=== PATIENT | male | born 1985 | race African-American/Black ===

== ENCOUNTER 2021-08-18 19:52 | Emergency (ER) | payer SELFPAY ==
[2021-08-18] MEDS ORDERED: METOCLOPRAMIDE 10 MG/2mL INJ ONE (20:35)
[2021-08-18] MEDS ORDERED: NA CHLORIDE 0.9% 1,000 ML ONE ×2 (20:35→22:59)
[2021-08-18] MEDS ORDERED: FAMOTIDINE 20 MG/2 ML VIAL IV ONE (20:35)
[2021-08-18 20:44] LABS: Absolute Lymphocytes (CBC) 2.3 K/uL (0.7-4.9); Basophils % 0.9 % (0-1.3); Hematocrit 47.5 % (39.6-49.0); Lymphocytes % 25.6 % (15.3-44.8); MPV 9.1 fL (7.6-11.3); RBC Red Blood Cell Count 4.84 M/uL (4.33-5.43)
[2021-08-18 21:01] LABS: ALT/SGPT 33 U/L (12-78); AST/SGOT 30 U/L (15-37); Albumin 4.1 g/dL (3.4-5.0); Alkaline Phosphatase 68 U/L (45-117); BUN Blood Urea Nitrogen 10 mg/dL (7-18); Bicarbonate 24 mmol/L (21-32); Bilirubin Direct 0.1 mg/dL (0-0.2); Bilirubin Total 0.3 mg/dL (0.2-1.0); Glucose Level 88 mg/dL (74-106); Lipase 243 U/L (73-393); Magnesium 2.3 mg/dL (1.8-2.4); Potassium 3.7 mmol/L (3.5-5.1); Protein, Total 8.1 g/dL (6.4-8.2); Sodium Level 142 mmol/L (136-145)
[2021-08-18] MEDS ORDERED: PROMETHAZINE INJ 25 MG/ML AMP ONE (21:43)
[2021-08-18] MEDS ORDERED: MORPHINE 4 MG/ML SYR ONE (21:43)
[2021-08-18 22:21] LABS: Urine Amorphous Sediment TRACE /HPF (NONE SEEN); Urine Bacteria <20 /HPF (NONE SEEN); Urine Mucus 2+ /HPF (NONE SEEN)
[2021-08-18 22:31] LABS: Barbiturates NEGATIVE (NEGATIVE); Benzodiazepines NEGATIVE (NEGATIVE); Cocaine NEGATIVE (NEGATIVE); METHAMPHETAM NEGATIVE (NEGATIVE); Methadone NEGATIVE (NEGATIVE); Opiates NEGATIVE (NEGATIVE); Phencyclidine NEGATIVE (NEGATIVE); THC Cannibis POSITIVE (NEGATIVE)
[2021-08-18] MEDS ORDERED: metroNIDAZOLE 500 MG TABLET ONE (23:18)
[2021-08-18 23:31] LABS: Urine Blood 1+ (Negative); Urine Glucose Negative (Negative); Urine Protein 1+ (Negative); Urine Specific Gravity >=1.030 (1.005-1.030)
[2021-08-18] MEDS ORDERED: CIPROFLOXACIN HCL 500 MG TAB ONE (23:58)
--- NOTE | 2021-08-19 00:07 | ER ---
Nurse's Notes [facility] Name: Michel Cowan Age: 36 yrs Sex: Male : 1985 Arrival Date: 08/18/2021 Time: 19:56 Bed 15 Private MD: Diagnosis: Enterocolitis Presentation: 08/18 20:25 Chief complaint: Patient states: he is vomiting, with diarrhea and abdominal pain for bb about a week these are recurring symptoms. Coronavirus screen: diarrhea, vomiting. Client presents with at least one sign or symptom that may indicate coronavirus-19. Standard/surgical mask placed on the client. Ebola Screen: No symptoms or risks identified at this time. Initial Sepsis Screen: Does the patient meet any 2 criteria? No. Patient's initial sepsis screen is negative. Does the patient have a suspected source of infection? No. Patient's initial sepsis screen is negative. Risk Assessment: Do you want to hurt yourself or someone else? Patient reports no desire to harm self or others. Onset of symptoms is unknown. 20:25 Method Of Arrival: Ambulatory bb 20:25 Acuity: NEHA 3 bb Historical: - Allergies: 20:28 No Known Allergies; bb - Home Meds: 20:28 None [Active]; bb - PMHx: 20:28 None; bb - PSHx: 20:28 None; bb - Immunization history:: Adult Immunizations up to date, Client reports having NOT received the Covid vaccine. - Social history:: Smoking status: Patient reports the use of cigarette tobacco products, Patient uses street drugs, marijuana. Assessment: 08/19 00:30 Reassessment: Patient is alert, oriented x 3, equal unlabored respirations, skin bb warm/dry/pink. pt verbalized understanding of and agrees to plan of care discharge instructions given pt ambulated with steady gait to exit accompanied by family Patient states feeling better. Patient states symptoms have improved. Vital Signs: 08/18 20:25 BP 115 / 90; Pulse 89; Resp 18 S; Temp 98.2(O); Pulse Ox 97% on R/A; Weight 70.31 kg bb (R); Height 5 ft. 8 in. (172.72 cm) (R); Pain 10/10; 22:22 BP 121 / 84; Pulse 84; Resp 18; Temp 98.1; Pulse Ox 98% on R/A; mr2 08/19 00:31 BP 97 / 59; Pulse 61; Resp 16 S; Pulse Ox 97% on R/A; bb 08/18 20:25 Body Mass Index 23.57 (70.31 kg, 172.72 cm) bb ED Course: 08/18 19:56 Patient arrived in ED. wm 20:09 Reinier Juan PA is PHCP. cp 20:09 Reinier Pérez MD is Attending Physician. cp 20:13 Bryant Randall, GANGA is Primary Nurse. mr2 20:28 Triage completed. bb 20:28 Arm band placed on Patient placed in an exam room, on a stretcher, on pulse oximetry. bb Family accompanied patient. 21:24 COVID-19 SARS RT PCR (Document "Date of Onset" if Symptomatic) Sent. mr2 22:14 CT Abd/Pelvis - IV Contrast Only In Process Unspecified. EDMS 08/19 00:02 En Wells MD is Referral Physician. cp 00:34 No provider procedures requiring assistance completed. IV discontinued, intact, bb bleeding controlled, No redness/swelling at site. Pressure dressing applied. Administered Medications: 08/18 20:32 Drug: NS 0.9% 1000 ml Route: IV; Rate: 1 bolus; Site: right antecubital; mr2 20:32 Drug: Pepcid (famotidine) 20 mg Route: IVP; Site: right antecubital; mr2 20:32 Drug: Reglan (metoCLOPramide) 20 mg Route: IVP; Site: right antecubital; mr2 22:03 Drug: Phenergan (promethazine) 12.5 mg Route: IVP; Site: right antecubital; mr2 22:03 Drug: morphine 2 mg Route: IVP; Site: right antecubital; mr2 22:03 Drug: NS 0.9% 1000 ml Route: IV; Rate: 1 bolus; Site: right subclavian; mr2 22:55 Drug: morphine 2 mg Route: IVP; Site: right antecubital; mr2 23:17 CANCELLED (Physician Discretion): metroNIDAZOLE 500 mg 100 ml IVPB once over 30 mins cp 23:31 Drug: Cipro (ciprofloxacin) 500 mg Route: PO; mr2 23:31 Drug: metroNIDAZOLE 500 mg Route: PO; mr2 Outcome: 08/19 00:06 Discharge ordered by . jack 00:32 Discharged to home ambulatory, with family. bb 00:32 Condition: stable 00:32 Discharge instructions given to patient, Instructed on discharge instructions, follow up and referral plans. medication usage, Demonstrated understanding of instructions, follow-up care, medications, Prescriptions given X 4. 00:34 Patient left the ED. bb Signatures: Dispatcher [employer] EDMS Cielo Salamanca RN RN bb Reinier Juan PA PA cp Marsh, Wendy wm Reynard, Mike, GANGA RN mr2
--- NOTE | 2021-08-19 00:07 | EDPHYS ---
Physician Documentation [facility] Name: Michel Cowan Age: 36 yrs Sex: Male : 1985 Arrival Date: 08/18/2021 Time: 19:56 Bed 15 Private MD: ED Physician Reinier Pérez HPI: 08/18 20:20 This 36 yrs old Black Male presents to ER via Ambulatory with complaints of cp Nausea/Vomiting/Diarrhea, Chills. 20:20 The patient presents to the emergency department with nausea, with "dry heaves", cp vomiting, that is continuous, diarrhea, that is intermittent, abdominal pain, of the abdomen diffusely. Onset: The symptoms/episode began/occurred 1 week(s) ago. Possible causes: flare up of bowel problem, patient's reports similar symptoms in the past but has not been unable to follow-up with GI due to cost. Associated signs and symptoms: Pertinent positives: anorexia, Pertinent negatives: constipation, fever, GI bleeding. Severity of symptoms: in the emergency department the symptoms are unchanged despite home interventions. Historical: - Allergies: 20:28 No Known Allergies; bb - Home Meds: 20:28 None [Active]; bb - PMHx: 20:28 None; bb - PSHx: 20:28 None; bb - Immunization history:: Adult Immunizations up to date, Client reports having NOT received the Covid vaccine. - Social history:: Smoking status: Patient reports the use of cigarette tobacco products, Patient uses street drugs, marijuana. ROS: 20:25 Constitutional: Positive for poor PO intake, Negative for fever. cp 20:25 Eyes: Negative for injury, pain, redness, and discharge. cp 20:25 ENT: Negative for ear pain, sore throat, difficulty swallowing, difficulty handling secretions. 20:25 Cardiovascular: Negative for chest pain. 20:25 Respiratory: Negative for cough, shortness of breath, wheezing. 20:25 Abdomen/GI: Positive for abdominal pain, nausea, vomiting, and diarrhea, anorexia, Negative for hematemesis, black/tarry stool, rectal bleeding. 20:25 : Negative for urinary symptoms. 20:25 Neuro: Negative for altered mental status, headache, weakness. 20:25 All other systems are negative. Exam: 20:30 Constitutional: The patient appears alert, awake, non-diaphoretic, non-toxic, well cp developed, well nourished, in obvious distress, mildly distressed. 20:30 Head/Face: Normocephalic, atraumatic. cp 20:30 Eyes: Periorbital structures: appear normal, Conjunctiva: normal, no exudate, no injection, Sclera: no appreciated abnormality, Lids and lashes: appear normal, bilaterally. 20:30 ENT: External ear(s): are unremarkable, Nose: is normal, Mouth: Lips: moist, Oral mucosa: moist, Posterior pharynx: Airway: no evidence of obstruction, patent. 20:30 Chest/axilla: Inspection: normal. 20:30 Cardiovascular: Rate: normal, Rhythm: regular. 20:30 Respiratory: the patient does not display signs of respiratory distress, Respirations: normal, no use of accessory muscles, no retractions, labored breathing, is not present, Breath sounds: are clear throughout, no decreased breath sounds, no stridor, no wheezing. 20:30 Abdomen/GI: Inspection: abdomen appears normal, Bowel sounds: active, all quadrants, Palpation: soft, in all quadrants, moderate abdominal tenderness, in all quadrants, rebound tenderness, is not appreciated, voluntary guarding, is not appreciated. 20:30 Back: pain, is absent, ROM is normal. Vital Signs: 20:25 BP 115 / 90; Pulse 89; Resp 18 S; Temp 98.2(O); Pulse Ox 97% on R/A; Weight 70.31 kg bb (R); Height 5 ft. 8 in. (172.72 cm) (R); Pain 10/10; 22:22 BP 121 / 84; Pulse 84; Resp 18; Temp 98.1; Pulse Ox 98% on R/A; mr2 08/19 00:31 BP 97 / 59; Pulse 61; Resp 16 S; Pulse Ox 97% on R/A; bb 08/18 20:25 Body Mass Index 23.57 (70.31 kg, 172.72 cm) bb MDM: 08/18 20:11 Patient medically screened. [facility] 08/19 00:05 Data reviewed: vital signs, nurses notes, lab test result(s), radiologic studies, CT cp scan. 00:05 Counseling: I had a detailed discussion with the patient and/or guardian regarding: the cp historical points, exam findings, and any diagnostic results supporting the discharge/admit diagnosis, lab results, radiology results, the need for outpatient follow up, a assistant sales director, to return to the emergency department if symptoms worsen or persist or if there are any questions or concerns that arise at home. Response to treatment: the patient's symptoms have markedly improved after treatment, and as a result, I will discharge patient. Special discussion: Based on the patient's Hx, exam, and Dx evaluation, there is no indication for emergent surgery or inpatient Tx. It is understood by the patient/guardian that if the Sx's persist or worsen they need to return immediately for re-evaluation. 08/18 20:16 Order name: Basic Metabolic Panel cp 08/18 20:16 Order name: CBC with Diff; Complete Time: 21:19 cp 08/18 20:16 Order name: Hepatic Function; Complete Time: 21:19 cp 08/18 20:16 Order name: Lipase; Complete Time: 21:19 cp 08/18 20:16 Order name: UDS; Complete Time: 23:01 cp 08/18 23:01 Interpretation: Normal except: THC POSITIVE. cp 08/18 20:16 Order name: Urine Microscopic Only; Complete Time: 23:01 cp 08/18 20:16 Order name: Magnesium; Complete Time: 21:19 cp 08/18 20:17 Order name: Basic Metabolic Panel; Complete Time: 21:19 EDOR 08/18 20:25 Order name: COVID-19 SARS RT PCR (Document "Date of Onset" if Symptomatic); Complete bb Time: 23:01 08/18 21:23 Order name: CT Abd/Pelvis - IV Contrast Only 08/18 23:30 Order name: Urine Dipstick-Ancillary EDMS 08/18 20:16 Order name: IV Saline Lock cp 08/18 20:16 Order name: Labs collected and sent 08/18 20:16 Order name: Urine Dipstick-Ancillary (obtain specimen); Complete Time: 23:31 cp 08/18 23:01 Order name: PO challenge; Complete Time: 23:31 cp Administered Medications: 08/18 20:32 Drug: NS 0.9% 1000 ml Route: IV; Rate: 1 bolus; Site: right antecubital; mr2 20:32 Drug: Pepcid (famotidine) 20 mg Route: IVP; Site: right antecubital; mr2 20:32 Drug: Reglan (metoCLOPramide) 20 mg Route: IVP; Site: right antecubital; mr2 22:03 Drug: Phenergan (promethazine) 12.5 mg Route: IVP; Site: right antecubital; mr2 22:03 Drug: morphine 2 mg Route: IVP; Site: right antecubital; mr2 22:03 Drug: NS 0.9% 1000 ml Route: IV; Rate: 1 bolus; Site: right subclavian; mr2 22:55 Drug: morphine 2 mg Route: IVP; Site: right antecubital; mr2 23:17 CANCELLED (Physician Discretion): metroNIDAZOLE 500 mg 100 ml IVPB once over 30 mins cp 23:31 Drug: Cipro (ciprofloxacin) 500 mg Route: PO; mr2 23:31 Drug: metroNIDAZOLE 500 mg Route: PO; mr2 Disposition Summary: 08/19/21 00:06 Discharge Ordered Location: Home cp Problem: new cp Symptoms: have improved cp Condition: Stable cp Diagnosis - Enterocolitis cp Followup: cp - With: En Wells MD - When: 2 - 3 days - Reason: Recheck today's complaints Discharge Instructions: - Discharge Summary Sheet cp - Colitis cp Forms: - Medication Reconciliation Form cp - Thank You Letter cp - Antibiotic Education cp - Prescription Opioid Use cp Prescriptions: - Cipro 500 mg Oral Tablet - take 1 tablet by ORAL route every 12 hours for 10 days; 20 tablet; Refills: 0, cp Product Selection Permitted - Metronidazole 500 mg Oral Tablet - take 1 tablet by ORAL route every 8 hours; 30 tablet; Refills: 0, Product cp Selection Permitted - promethazine 25 mg Oral Tablet - take 1 tablet by ORAL route every 6 hours As needed; 20 tablet; Refills: 0, cp Product Selection Permitted - dicyclomine 20 mg Oral Tablet - take 1 tablet by ORAL route 4 times per day; 30 tablet; Refills: 0, Product cp Selection Permitted Addendum: 08/21/2021 07:49 Co-signature as Attending Physician, Reinier Pérez MD I agree with the assessment and c styles plan of care. Signatures: Dispatcher [employer] Reinier Kendrick MD MD cha Ballard, Brenda RN RN Reinier Buenrostro PA PA cp Bryant Randall RN RN mr2 Corrections: (The following items were deleted from the chart) 08/18 23:17 23:01 metroNIDAZOLE 500 mg 100 ml IVPB once over 30 mins ordered. cp cp
[2021-08-19 01:09] VITALS: TEMP 98.1
[2021-08-19 01:10] VITALS: BP 97/59; O2SAT 97
--- NOTE | 2021-08-20 11:14 | RAD REPORT ---
EXAM DESCRIPTION: CT - Abdomen Pelvis W Contrast - 08/19/2021 6:31 am CLINICAL HISTORY: Abdominal pain. COMPARISON: None. TECHNIQUE: CT scan of the abdomen and pelvis was performed with IV contrast. This exam was performed according to our departmental dose-optimization program, which includes automated exposure control, adjustment of the mA and/or kV according to patient size and/or use of iterative reconstruction techn ique. FINDINGS: The lung bases are clear. No pleural or pericardial effusions. There is no hiatal hernia. There is a subcentimeter hypodensity in the liver which is too small to characterize. The spleen, obando creas, gallbladder, adrenal glands, kidneys, and pelvic organs are normal. No hydronephrosis or urina ry stones are seen. There is diffuse circumferential wall thickening which extends throughout the large bowel and third p ortions of the small bowel. No evidence of bowel obstruction or acute appendicitis. There is no intra peritoneal adenopathy, free fluid, or free air. The stomach is normal. The aorta and IVC are unremarkable. There is partial osseous fusion of T12-L1. No abnormal body wall hernia is seen. IMPRESSION: Findings suggestive of acute enterocolitis, which may be infectious or inflammatory in o rigin. Electronically signed by: Hood Lanier MD 08/18/2021 10:53 PM HELICOPTER DISPATCHER Due to temporary technical issues with the PACS/Fluency reporting system, reports are being signed by the in house radiologists without review as a courtesy to insure prompt reporting. The interpreting radiologist is fully responsible for the content of the report.
== END 2021-08-19 00:34 | disposition home or self-care (01) ==
LOC: ER 19:52
DX: K52.9 Noninfective gastroenteritis and colitis, unspecified (principal); Z20.822 Contact with and (suspected) exposure to COVID-19
CPT/HCPCS: 36415; 74177; 80048; 80076; 80307; 81003; 81015; 83690; 83735; 85025; 96374; 96375; 99284; J2550; J2765; J7030; Q9967; U0003